=== PATIENT | male | born 1975 | race Caucasian/White ===

== ENCOUNTER 2020-08-15 17:58 | Emergency (ER) | payer OTHER ==
[~2020-08-15] VITALS: Ht 170.2 cm; Wt 104.5 kg
[2020-08-15 18:15] VITALS: BP 147/86; Ht 170.2 cm; Wt 104.5 kg
[2020-08-15 18:56] LABS: BASOPHILS 0.1 % (0-2); EOSINOPHILS 2.7 % (0-7); HEMATOCRIT 47.4 % (42.0-54.0); HEMOGLOBIN 15.5 g/dL (13.5-17.5); IMMATURE GRANULOCYTES 0.3 % (0-5); LYMPHOCYTE ABS# 3.02 10x3/uL (1.32-3.57); LYMPHOCYTES 34.3 % (15-50); MCH 28.3 pg (26.0-34.0); MCHC 32.7 g/dL (31.0-37.0); MCV 86.5 fL (80.0-100.0); MEAN PLATELET VOLUME 10.7 fL (7.4-10.4); NEUTROPHIL ABS# 4.97 10x3/uL (1.78-5.38); NEUTROPHILS 56.6 % (40-80); PLATELET COUNT 236 10x3/uL (130-400); RBC 5.48 10x6/uL (4.20-6.10); WBC 8.8 10x3/uL (4.8-10.8)
[2020-08-15 19:06] LABS: CALC OSMOLALITY 273 mosm/kg (275-300); CALCIUM 8.6 mg/dL (8.5-10.1); CARBON DIOXIDE 26.8 mmol/L (21.0-32.0); CHLORIDE - SERUM 102 mmol/L (98-107); CREATININE - SERUM 0.9 mg/dL (0.6-1.3); GLUCOSE 124 mg/dL (74-106); POTASSIUM - SERUM 3.7 mmol/L (3.5-5.1); SODIUM 137 mmol/L (136-145); UREA NITROGEN 9 mg/dL (7-18); eGFR NON AFRICAN AMERICAN > 90 mL/min (90-120)
[2020-08-15 19:11] LABS: ALBUMIN 3.4 g/dL (3.4-5.0); ALKALINE PHOSPHATASE 144 U/L (30-120); ALT (SGPT) 61 U/L (10-68); PROTEIN - SERUM 7.1 g/dL (6.4-8.2)
[2020-08-15 19:25] LABS: BILIRUBIN NEGATIVE (NEGATIVE); KETONE NEGATIVE (NEGATIVE); NITRITE NEGATIVE (NEGATIVE); UROBILINOGEN NORMAL mg/dL (< 2)
[2020-08-15 19:27] LABS: BACTERIA FEW HPF (NONE SEEN); SQUAMOUS EPITHELIAL NONE SEEN HPF (0-4); WHITE CELLS - URINE 0-5 HPF (0-1)
[2020-08-15 19:28] LABS: AMORPHOUS SEDIMENT MODERATE LPF (NONE SEEN)
[2020-08-15] MEDS ORDERED: NAPROSYN500 MG PO (21:05)
[2020-08-15] MEDS ORDERED: DOXYCYCLINE HY100 M2 PO (21:05)
== END 2020-08-15 21:32 | disposition home or self-care (01) ==
LOC: D.ER 17:58
PROVIDERS: Family Medicine
DX: N50.819 Testicular pain, unspecified (principal); N45.1 Epididymitis